=== PATIENT | female | born 1950 | race Caucasian/White ===

== ENCOUNTER 2021-07-13 20:21 | Emergency (ER) | payer SELFPAY ==
[~2021-07-13] VITALS: Ht 160 cm; Wt 68.0 kg
[2021-07-13] MEDS: DIPHENHYDRAMINE 25MG CAPSULE PO ONE (21:30)
[2021-07-13] MEDS: PROCHLORPERAZINE MALEATE 10MG TABLET PO ONE (21:30)
[2021-07-13] MEDS: KETOROLAC 15MG/ML VIAL IM ONE (21:30)
[2021-07-13 22:58] LABS: BASOPHILS % 0.4 % (0.0-2.0); EOSINOPHILS % 0.3 % (0.0-5.0); HEMATOCRIT. 45.9 % (36.0-48.0); LYMPHOCYTES % 11.5 % (20.0-50.0); MEAN CORPUSCULAR HEMOGLOBIN 29.9 pg (28.0-32.0); MEAN CORPUSCULAR VOLUME 91.4 fL (81.0-99.0); MEAN PLATELET VOLUME 9.1 fl (7.4-10.4); MONOCYTES % 3.1 % (2.0-8.0); NEUTROPHILS % 84.7 % (40.0-76.0); PLATELET 285 x1000/uL (130-400); RED BLOOD CELL COUNT 5.02 mill/uL (4.2-5.4); RED CELL DISTRIBUTION WIDTH 13.9 % (11.6-14.6)
[2021-07-13 23:25] LABS: CHLORIDE 108 mEq/L (98-107)
[2021-07-14] MEDS: ONDANSETRON HCL 4MG/2ML INJ IV ONE (00:30)
[2021-07-14] MEDS ORDERED: NOREPINEPHRINE 8 MG in DEXT 5% WATER 242 ML IV PRN ×2 (00:45→01:00)
[2021-07-14] MEDS: LEVETIRACETAM 1000MG PREMIX 100 ML IV ONE (00:45)
[2021-07-14] MEDS ORDERED: ROCURONIUM BROMIDE 10MG/ML VIAL 5ML IV NR (01:15)
[2021-07-14] MEDS ORDERED: ETOMIDATE 2MG/ML 10ML VIAL IV ONE (01:15)
[2021-07-14] MEDS ORDERED: ROCURONIUM BROMIDE 10MG/ML VIAL 5ML IV ONE (01:15)
[2021-07-14] MEDS ORDERED: PROPOFOL 10MG/ML 100ML 100 ML IV ONE (01:15)
[2021-07-14 02:25] VITALS: BP 132/57
== END 2021-07-14 02:40 | disposition short-term general hospital (02) ==
LOC: ER 20:21
DX: I60.9 Nontraumatic subarachnoid hemorrhage, unspecified (principal); Z20.822 Contact with and (suspected) exposure to COVID-19; Z86.59 Personal history of other mental and behavioral disorders
CPT/HCPCS: 36415; 36556; 70450; 70496; 71045; 80053; 82962; 85025; 87426; 93005; 96365; 96372; 96375; 99291; J1885; J1953; J2405; J3490; J7060; Q0163; Q0164